=== PATIENT | male | born 1990 | race Caucasian/White ===

== ENCOUNTER 2024-12-23 11:36 | Emergency (ER) | payer OTHER ==
[~2024-12-23] VITALS: Ht 182.9 cm; Wt 90.7 kg
[2024-12-23] MEDS ORDERED: CEFD300C3 PO (13:58)
[2024-12-23 14:02] VITALS: BP 124/72; TEMP 98.4; O2SAT 99
== END 2024-12-23 14:02 | disposition home or self-care (01) ==
LOC: ER 11:36
DX: H60.02 Abscess of left external ear (principal); M54.2 Cervicalgia; R07.89 Other chest pain; R53.1 Weakness
CPT/HCPCS: A4606; A4663

== ENCOUNTER 2025-03-06 10:37 | Emergency (ER) | payer MEDICAID, OTHER ==
[~2025-03-06] VITALS: Ht 182.9 cm; Wt 90.7 kg
[~2025-03-06 10:37] MED LIST: CEFD300C3 PO
[2025-03-06 10:41] VITALS: BP 124/63
[2025-03-06 12:00] LABS: PLATELET COUNT (AUTO) 229 K/uL (152-348); RED BLOOD CELL COUNT(AUTO) 4.58 MIL/uL (4.06-5.63); RED CELL DISTRIBUTION WIDTH 12.0 % (12.1-16.2); WHITE BLOOD COUNT (AUTO) 6.3 K/uL (3.6-10.2)
[2025-03-06] MEDS ORDERED: OXYC-128 PO (12:34)
[2025-03-06] MEDS ORDERED: LIDO30AD10 TP (12:34)
[2025-03-06 13:38] VITALS: BP 124/55; O2SAT 99
== END 2025-03-06 12:45 | disposition home or self-care (01) ==
LOC: ER 10:37
DX: S20.219A Contusion of unspecified front wall of thorax, initial encounter (principal); S80.819A Abrasion, unspecified lower leg, initial encounter; Z79.899 Other long term (current) drug therapy; W01.0XXA Fall on same level from slipping, tripping and stumbling without subsequent striking against object, initial encounter; Y93.89 Activity, other specified; Y92.89 Other specified places as the place of occurrence of the external cause; Y99.8 Other external cause status
CPT/HCPCS: 36415; 71101; 85025; A4606; A4663